=== PATIENT | male | born 1990 | race Caucasian/White ===

== ENCOUNTER 2017-08-19 11:20 | Emergency (ER) | payer OTHER ==
[~2017-08-19] VITALS: Ht 188 cm; Wt 109.1 kg
[2017-08-19] MEDS ORDERED: SOMA350T PO (12:46)
[2017-08-19 12:57] VITALS: BP 107/66
== END 2017-08-19 12:56 | disposition home or self-care (01) ==
LOC: M ED 11:20
DX: M54.16 Radiculopathy, lumbar region (principal); Z88.0 Allergy status to penicillin

== ENCOUNTER → 2017-10-04 | Outpatient (CLI) | payer OTHER ==
[~2017-10-04] MED LIST: SOMA350T PO
--- NOTE | 2017-10-04 19:47 | REP ---
MRI LUMBAR SPINE WITHOUT CONTRAST: HISTORY: Back pain. There is no disc bulge or herniation at the L1-2 trough L3-4 levels. The nerves exit the neural foramina without compression. A diffuse disc bulge is present at the L4-5 level. This abuts the L5 nerves. There is no thecal sac compression. There is hypertrophy of the posterior articulating facets. The L4 nerves exit the neural foramina without compression. A diffuse disc bulge is present at the L5-S1 level. There is no thecal sac or nerve compression. There is hypertrophy of the posterior articulating facets. The L5 nerves exit the neural foramina without compression. There is partial sacralization of the L5 vertebral body. The conus medullaris is normal in appearance terminating at the level of the T12-L1 intervertebral discs. Normal signal intensity is present in the lumbar intervertebral discs and vertebral bodies. IMPRESSION: 1. Diffuse disc bulge at the L4-5 level. This abuts the L5 nerves. 2. Diffuse disc bulge at the L5-S1 level without thecal sac or nerve compression. Signed by Sixto Whatley MD 10/04/2017 07:52 P
--- NOTE | 2017-10-05 08:43 | REP ---
MRI RIGHT HIP WITHOUT CONTRAST: HISTORY: Low back and right hip pain. No comparison imaging is available. TECHNIQUE: Coronal T1 and fat sat T2 weighted images of both hips are acquired. In addition smaller field of view higher resolution T2-weighted turbo spin echo fat sat images are acquired in all three planes. MRI FINDINGS: There is a well demarcated but extensive area of abnormal signal intensity in the articular surface of the femoral head on the right consistent with avascular necrosis. No flattening is seen. Lesion is bordered by a low T1 low T2 signal intensity line. There is some subcortical T2 hyperintensity but no collapse is seen. The affected bone is limited to the femoral head and does not appear to extend into the neck. The left proximal femur shows normal cortical and medullary bone signal intensity. The bony pelvic ring is intact as visualized. There is a small joint effusion visible on the right associated with this. There is no evidence of loose body. Ligamentum teres appears intact. Study is otherwise unremarkable. 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 Signed by Ian Russ MD 10/05/2017 02:34 P
== END ==
LOC: M RAD 16:05
PROVIDERS: ATTEND Orthopaedic Surgery
DX: M51.26 Other intervertebral disc displacement, lumbar region (principal); M51.27 Other intervertebral disc displacement, lumbosacral region; R93.7 Abnormal findings on diagnostic imaging of other parts of musculoskeletal system

== ENCOUNTER 2017-11-20 13:12 | Outpatient (RCR) | payer OTHER | END 2017-12-06 | LOC: M PT 13:12 | DX: Z51.89 Encounter for other specified aftercare (principal); Z96.641 Presence of right artificial hip joint | CPT/HCPCS: 97110 ==

== ENCOUNTER 2017-12-11 10:42 | Outpatient (RCR) | payer OTHER | END 2018-01-06 | LOC: M PT 10:42 | DX: Z47.89 Encounter for other orthopedic aftercare (principal); Z96.641 Presence of right artificial hip joint | CPT/HCPCS: 97110 ==

== ENCOUNTER 2019-02-16 16:38 | Emergency (ER) | payer OTHER ==
[~2019-02-16] VITALS: Ht 185.4 cm; Wt 96.8 kg
[2019-02-16 19:04] VITALS: BP 117/75
--- NOTE | 2019-02-17 07:55 | REP ---
CT BRAIN WITHOUT CONTRAST: HISTORY: Loss of consciousness. No comparison brain imaging. FINDINGS: Preliminary digital classified advertising clerk radiograph is unremarkable. Bone window settings demonstrate an intact bony calvarium. No skull fracture or bony destructive lesion is seen. The visualized paranasal sinuses are clear. No intraorbital abnormality is seen. There is a small area of linear scalp swelling or injury in the right frontal region. On soft tissue window settings, there is no evidence of intracranial hemorrhage. No extra-axial fluid collection is seen. No mass, infarct, or midline shift is seen. There is a small 7 mm low density area in the subcortical white matter of the right frontal lobe. This may reflect a small old area of encephalomalacia from previous injury or old lacunar infarction. It does not appear acute. No other abnormal white matter lesion is seen. IMPRESSION: 7 mm well-circumscribed low density area in the subcortical white matter of the right frontal lobe. 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 Otherwise negative noncontrast head CT. Right frontal scalp swelling or fibrosis. Electronically Signed by Ian Russ MD 02/17/2019 09:19 A
== END 2019-02-16 19:11 | disposition home or self-care (01) ==
LOC: M ED 16:38
DX: S06.0X9A Concussion with loss of consciousness of unspecified duration, initial encounter (principal); V86.55XA Driver of 3- or 4- wheeled all-terrain vehicle (ATV) injured in nontraffic accident, initial encounter; Y92.89 Other specified places as the place of occurrence of the external cause; Z88.0 Allergy status to penicillin

== ENCOUNTER 2023-01-30 08:40 | Emergency (ER) | payer OTHER ==
[~2023-01-30] VITALS: Ht 185.4 cm; Wt 101.6 kg
[2023-01-30 09:38] VITALS: BP 118/72
== END 2023-01-30 09:40 | disposition home or self-care (01) ==
LOC: M ED 08:40
DX: S29.011A Strain of muscle and tendon of front wall of thorax, initial encounter (principal); X58.XXXA Exposure to other specified factors, initial encounter; Y92.89 Other specified places as the place of occurrence of the external cause; Y93.89 Activity, other specified; Y99.0 Civilian activity done for income or pay; Z88.0 Allergy status to penicillin

== ENCOUNTER → 2023-02-07 | Outpatient (CLI) | payer OTHER | LOC: M WUC 10:54 | PROVIDERS: ATTEND Physician Assistant | DX: S60.052A Contusion of left little finger without damage to nail, initial encounter (principal); X58.XXXA Exposure to other specified factors, initial encounter; Y92.9 Unspecified place or not applicable; Y93.9 Activity, unspecified; Y99.9 Unspecified external cause status; S62.617A Displaced fracture of proximal phalanx of left little finger, initial encounter for closed fracture ==

== ENCOUNTER → 2024-03-28 | Outpatient (CLI) | payer OTHER | LOC: M WUC 09:41 | PROVIDERS: ATTEND Nurse Practitioner Family | DX: R07.82 Intercostal pain (principal) ==